=== PATIENT | female | born 1950 | race Caucasian/White ===

== ENCOUNTER 2023-07-02 08:00 | Outpatient (CLI) | payer MEDICARE, OTHER ==
[2023-07-02 08:11] LABS: BASOPHILS % (AUTO) 0.2 %; EOSINOPHILS # (AUTO) 0.1 10^3/uL (0.0-0.7); EOSINOPHILS % (AUTO) 1.9 %; HGB - HEMOGLOBIN 14.3 g/dL (12.0-16.0); LYMPHOCYTES # (AUTO) 1.4 10^3/uL (1.5-3.5); MEAN CORPUSCULAR HEMOGLOBIN 29.9 pg (27.0-31.0); MEAN CORPUSCULAR VOLUME 87.7 fL (81.0-99.0); MONOCYTES # (AUTO) 0.3 10^3/uL (0.0-1.0); MONOCYTES % (AUTO) 7.1 %; NEUTROPHILS # (AUTO) 2.8 10^3/uL (1.5-6.6); NEUTROPHILS % (AUTO) 59.8 %; PLT - PLATELET COUNT 230 10^3/uL (130-450); RED BLOOD COUNT 4.79 10^6/uL (4.20-5.40); RED CELL DISTRIBUTION WIDTH 13.3 % (12.0-15.0); WHITE BLOOD COUNT 4.7 x10^3/uL (4.8-10.8)
[2023-07-02 08:27] LABS: ALBUMIN 4.5 g/dL (3.2-5.5); ALBUMIN/GLOBULIN RATIO 1.8 (1.0-2.2); ALKALINE PHOSPHATASE 68 IU/L (42-121); ALT ALANINE AMINOTRANSFERASE 16 IU/L (10-60); AST ASPARTATE AMINOTRANSFERASE 19 IU/L (10-42); BUN - BLOOD UREA NITROGEN 12 mg/dL (6-20); CALCIUM 9.6 mg/dL (8.5-10.3); CARBON DIOXIDE - CO2 29 mmol/L (21-32); CHLORIDE 98 mmol/L (101-111); CHOL/HDL RATIO 2.3 (<4.4); CHOLESTEROL 124 mg/dL; CREATININE 0.7 mg/dL (0.6-1.3); GFR - MDRD 82 (>89); GLUCOSE 108 mg/dL (74-104); HDL CHOLESTEROL 53 mg/dL; LDL CHOLESTEROL,CALCULATED 55 mg/dL; POTASSIUM 4.4 mmol/L (3.5-4.5); SODIUM 132 mmol/L (135-145); TRIGLYCERIDES 80 mg/dL (48-352); VLDL CHOLESTEROL 16 mg/dL
[2023-07-02 08:42] LABS: THYROID STIMULATING HORMONE 2.22 uIU/mL (0.34-5.60)
== END 2023-07-02 08:01 | disposition home or self-care (01) ==
LOC: LAB 08:00
PROVIDERS: ATTEND Nurse Practitioner
DX: I10 Essential (primary) hypertension (principal); E78.5 Hyperlipidemia, unspecified; R53.83 Other fatigue
CPT/HCPCS: 36415; 80053; 80061; 83721; 84443; 85025